=== PATIENT | male | born 1985 | race Caucasian/White ===

== ENCOUNTER 2018-01-25 14:32 | Emergency (ER) ==
[2018-01-25 14:48] VITALS: BP 130/82; TEMP 96.6; BMI 21.4
[2018-01-25] MEDS ORDERED: LIDOCAINE HCL 1% SDV SUBCUT STA (15:44)
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
--- NOTE | 2018-01-25 17:22 | CT ---
EXAM: CT sinuses/facial bones without contrast HISTORY: Trauma COMPARISON: None TECHNIQUE: Helical axial CT of the facial bones and sinuses were obtained without contrast with artur nal and sagittal reconstructions. FINDINGS: There is no acute osseous abnormality. Specifically the orbits are intact with no evidenc e for inferior or medial blowout fracture. The zygomatic arches, pterygoid plates and kelley of the m axillary sinuses are intact. There is no nasal or mandibular fracture or dislocation. There are no fluid levels in the paranasal sinuses. The visualized portions of the temporal bones, upper cervica l spine and intracranial contents are unremarkable. There are no acute soft tissue abnormalities. No dental fractures are identified. There is noted to be a cystic smoothly expansile lesion within the r ight maxilla separate from the maxillary antrum measuring 2.2 x 2.6 cm in the coronal plane. Postsurg ical changes are noted involving the mandible on the left. The mandibular condyle on the left is dre ewhat hypoplastic appearing which could be congenital or on the basis of old trauma. IMPRESSION: 1. No acute osseous abnormality is identified. 2. Expansile lesion in the maxilla which is separate from the maxillary antrum. This probably repre sents an incidental dentigerous cyst. 3. Postsurgical changes in the mandible with probable post traumatic changes in the left mandibular condyle.
[2018-01-25] MEDS ORDERED: BOOSTRIX IM ONE (18:22)
== END 2018-01-25 18:58 | disposition home or self-care (01) ==
LOC: ED 14:32
DX: S01.112A Laceration without foreign body of left eyelid and periocular area, initial encounter (principal); J34.1 Cyst and mucocele of nose and nasal sinus; W50.0XXA Accidental hit or strike by another person, initial encounter; F17.210 Nicotine dependence, cigarettes, uncomplicated
CPT/HCPCS: 90471; 90715; 99283

== ENCOUNTER 2018-08-07 11:18 | Emergency (ER) ==
[2018-08-07 11:33] VITALS: BP 128/76; TEMP 98.5; BMI 22.4
[2018-08-07] MEDS ORDERED: PRED FORTE 1% OPTH SOL OP STA (11:50)
[2018-08-07] MEDS ORDERED: TOBREX 0.3% OP STA (11:50)
[2018-08-07] MEDS ORDERED: DECADRON 4 MG/ML SDV IM STA (11:51)
[2018-08-07] MEDS ORDERED: PREDNISONE PO STA (11:51)
[2018-08-07] MEDS ORDERED: NORCO 10-325 PO STA (11:52)
--- NOTE | 2018-08-07 11:56 | ED.PDOC ---
General ED Provider: Dr. YISEL EDWARDS Chief Complaint: Eye Problem Stated Complaint: LEFT EYE IRRITATED PINK Time Seen by Physician: 11:30 (SEEN WITH MENA AT ALL TIMES ) Information Source: Patient Exam Limitations: No limitations Nursing and Triage Documentation Reviewed and Agree: Yes Does patient meet sepsis criteria?: No If yes, has appropriate treatment been initiated?: No System Inflammatory Response Syndrome: Not Applicable Sepsis Protocol: For patient's 13 years and over: Temp is 96.8 and below OR 101 and greater Pulse >90 BPM Resp >20/minute Acutely Altered Mental Status Are patient's symptoms suggestive of a new infection, such as: -Pneumonia -Skin, Soft Tissue -Endocarditis -UTI -Bone, Joint Infection -Implantable Device -Acute Abdominal Infection -Wound Infection -Meningitis -Blood Stream Catheter Infection -Unknown EENT Complaint Exam - Eye Complaint/Exam Onset/Duration: this morning Symptoms Are: Still present Timing: Constant Initial Severity: Moderate Current Severity: Moderate Location: Left Character: Reports: Dull, Foreign body sensation Aggravating: Reports: Light, Blinking. Denies: Eye drops, Contact lens Alleviating: Reports: Darkness Associated Signs and Symptoms: Reports: Clear drainage. Denies: Photophobia, Purulent drainage, Vision impairment, Fever, Swelling Eye Surgical History: Reports: None Penetrating Injury Risk Factors: None Globe Rupture Risk Factors: None Acute Glaucoma Risk Factors: None Optic Artery Occlusion Risk Factors: None Visual Acuity Right Eye: 20/15 Visual Acuity Left Eye: 20/15 Visual Field: Normal Extraocular Movement: Normal Orbit Findings: Normal Globe Findings: Intact Lid Findings: Normal Conjunctival Findings: Red (left) Corneal Findings: Clear Fundi: Normal Slit Lamp Used: No Differential Diagnoses: Conjunctivitis, Corneal Abrasion Review of Systems - Review Of Systems Constitutional: Reports: No symptoms Eyes: Reports: Drainage Ears, Nose, Mouth, Throat: Reports: No symptoms Respiratory: Reports: No symptoms Cardiac: Reports: No symptoms GI: Reports: No symptoms : Reports: No symptoms Musculoskeletal: Reports: No symptoms Skin: Reports: No symptoms Neurological: Reports: No symptoms Endocrine: Reports: No symptoms Hematologic/Lymphatic: Reports: No symptoms All Other Systems: Reviewed and Negative Past Medical History - Past Medical History Endocrine: Reports: None Cardiovascular: Reports: None Respiratory: Reports: None Hematological: Reports: None Gastrointestinal: Reports: None Genitourinary: Reports: None Neuro/Psych: Reports: None Musculoskeletal: Reports: None Cancer: Reports: None - Surgical History General Surgical History: Reports: None - Family History Family History: Reports: None - Social History Smoking Status: Current every day smoker, Light tobacco smoker Hx Substance Use: No (marijuana) Alcohol Screening: Occasionally - Immunizations Tetanus Shot up to Date: No Physical Exam - Physical Exam Appearance: Well-appearing, No pain distress, Well-nourished Eyes: Conjunctiva inflammed (, lid eversion no F/B NOTED ) ENT: Ears normal, Nose normal, Oropharynx normal Respiratory: Airway patent, Breath sounds clear, Breath sounds equal, Respirations nonlabored Cardiovascular: RRR, Pulses normal, No rub, No murmur GI/: Soft, Nontender, No masses, Bowel sounds normal, No Organomegaly Musculoskeletal: Normal strength, ROM intact, No edema, No calf tenderness Skin: Warm, Dry, Normal color Neurological: Sensation intact, Motor intact, Reflexes intact, Cranial nerves intact, Alert, Oriented Psychiatric: Affect appropriate, Mood appropriate Critical Care Note - Critical Care Note Total Time (mins): 0 Course - Course Orders, Labs, Meds: Orders Category Date Time Status Dexamethasone 4 mg/ml Inj [Decadron 4 mg/ml Sdv] MEDS 08/07/18 11:51 Stat 8 mg IM ONCE STA Hydrocodone Bit/Acetaminophen [[place] 10-325] MEDS 08/07/18 11:52 Stat 1 tab PO ONCE STA Prednisolone Opth Susp [Pred Forte 1% Opth Caren] MEDS 08/07/18 11:50 Stat 2 drop OP ONCE STA Prednisone MEDS 08/07/18 11:51 Stat 40 mg PO ONCE STA Tobramycin Sulfate Opth 0.3% [Tobrex 0.3%] MEDS 08/07/18 11:50 Stat 2 drop OP ONCE STA Medications Discontinued Medications Generic Name Dose Route Start Last Admin Trade Name Freq PRN Reason Stop Dose Admin Hydrocodone Bitart/Acetaminophen 1 tab 08/07/18 11:52 [place] 10-325 PO 08/07/18 11:53 ONCE STA Dexamethasone Sodium Phosphate 8 mg 08/07/18 11:51 Decadron 4 Mg/Ml Sdv IM 08/07/18 11:52 ONCE STA Prednisolone Acetate 2 drop 08/07/18 11:50 Pred Forte 1% Opth Caren OP 08/07/18 11:51 ONCE STA Prednisone 40 mg 08/07/18 11:51 Prednisone PO 08/07/18 11:52 ONCE STA Tobramycin Sulfate 2 drop 08/07/18 11:50 Tobrex 0.3% OP 08/07/18 11:51 ONCE STA Vital Signs: Temp Pulse Resp BP Pulse Ox 08/07/18 11:28 98.5 F 87 18 128/76 99 Departure - Departure Time of Disposition: 12:02 Disposition: HOME SELF-CARE Discharge Problem: Conjunctivitis Qualifiers: Conjunctivitis type: acute Acute conjunctivitis type: unspecified Laterality: left Qualified Code(s): H10.32 - Unspecified acute conjunctivitis, left eye Instructions: Conjunctivitis (ED) Condition: Good Pt referred to PMD for follow-up: Yes IPMP verified?: No Additional Instructions: Please call your Family Physician as soon as possible to schedule a follow-up appointment. Allergies/Adverse Reactions: Allergies No Known Allergies Allergy (Unverified 11/14/14 08:06) Home Medications: Ambulatory Orders 1 [No Reported Medications] 08/07/18 Disposition Discussed With: Patient
[2018-08-07] MEDS ORDERED: TETRACAINE 0.5% OPTH SOL OP STA (11:57)
== END 2018-08-07 12:49 | disposition home or self-care (01) ==
LOC: ED 11:18
DX: H57.12 Ocular pain, left eye (principal); H10.32 Unspecified acute conjunctivitis, left eye
CPT/HCPCS: 96372; 99282

== ENCOUNTER 2018-08-26 16:08 | Emergency (ER) ==
[2018-08-26 16:08] VITALS: BMI 22.4
[2018-08-26 16:10] VITALS: BP 130/88; TEMP 98.4
[2018-08-26] MEDS ORDERED: LIDOCAINE HCL 1% SDV SUBCUT STA (17:11)
[2018-08-26] MEDS ORDERED: TENIVAC IM ONE (17:11)
--- NOTE | 2018-08-26 17:35 | ED.PDOC ---
General ED Provider: Dr. YISEL EDWARDS Chief Complaint: Hand Laceration Stated Complaint: hand laceration right ring finger Time Seen by Physician: 16:16 (see photos, nurse present) Mode of Arrival: Walk-In Information Source: Patient Exam Limitations: No limitations Primary Care Provider: SOFIE BRYANT Nursing and Triage Documentation Reviewed and Agree: Yes Does patient meet sepsis criteria?: No System Inflammatory Response Syndrome: Not Applicable Sepsis Protocol: For patient's 13 years and over: Temp is 96.8 and below OR 101 and greater Pulse >90 BPM Resp >20/minute Acutely Altered Mental Status Are patient's symptoms suggestive of a new infection, such as: -Pneumonia -Skin, Soft Tissue -Endocarditis -UTI -Bone, Joint Infection -Implantable Device -Acute Abdominal Infection -Wound Infection -Meningitis -Blood Stream Catheter Infection -Unknown Musculoskeletal Complaint Exam - Upper Extremity Complaint/Exam Location of Pain: Reports: Right (hand laceration) Mechanism of Injury: Reports: Trauma Onset/Duration: 1 hr ago Symptoms Are: Still present Timing: Constant Episodes Lasting: Minutes Initial Severity: Mild Current Severity: Mild Location: Reports: Discrete Character: Reports: Aching Aggravating: Reports: None Alleviating: Reports: None DVT Risk Factors: Reports: Recent trauma (laceration) Related Surgical History: Reports: None Upper Extremity Findings: Absent: Swelling, Ecchymosis, Abnormal contour ( laceration see photos) Differential Diagnoses: Laceration Review of Systems - Review Of Systems Constitutional: Reports: No symptoms Eyes: Reports: No symptoms Ears, Nose, Mouth, Throat: Reports: No symptoms Respiratory: Reports: No symptoms Cardiac: Reports: No symptoms GI: Reports: No symptoms : Reports: No symptoms Musculoskeletal: Reports: No symptoms Skin: Reports: Other (laceration) Neurological: Reports: No symptoms Endocrine: Reports: No symptoms Hematologic/Lymphatic: Reports: No symptoms All Other Systems: Reviewed and Negative Past Medical History - Past Medical History Endocrine: Reports: None Cardiovascular: Reports: None Respiratory: Reports: None Hematological: Reports: None Gastrointestinal: Reports: None Genitourinary: Reports: None Neuro/Psych: Reports: None Musculoskeletal: Reports: None Cancer: Reports: None - Surgical History General Surgical History: Reports: None - Family History Family History: Reports: None - Social History Smoking Status: Current every day smoker, Light tobacco smoker Hx Substance Use: No (marijuana) Alcohol Screening: Occasionally - Immunizations Tetanus Shot up to Date: No Physical Exam - Physical Exam Appearance: Well-appearing, No pain distress, Well-nourished Eyes: ROSIE, EOMI, Conjunctiva clear ENT: Ears normal, Nose normal, Oropharynx normal Respiratory: Airway patent, Breath sounds clear, Breath sounds equal, Respirations nonlabored Cardiovascular: RRR, Pulses normal, No rub, No murmur GI/: Soft, Nontender, No masses, Bowel sounds normal, No Organomegaly Musculoskeletal: Normal strength, ROM intact, No edema, No calf tenderness Skin: Warm, Dry (laceration right ring finger 1 cm see photos no F/B ) Neurological: Sensation intact, Motor intact, Reflexes intact, Cranial nerves intact, Alert, Oriented Psychiatric: Affect appropriate, Mood appropriate Procedures - Laceration/Wound Repair No standard instances Wound Description: Linear (LACEATION RIGHT RING FINGER NOTED IN PHOTOS) Wound Length (cm): 1CM Wound Width: 2MM Wound Depth: 1MM Wound Explored: Clean Wound Irrigated: Yes Wound Prep: Hibiclens Anesthesia: Lidocaine (PLAIN 2 ML PLAIN) Undermining: Minimal Wound Margins: Revised, [place] border aligned Wound Repaired With: Sutures Suture Size and Type: 3 PROLENE Number of Sutures: 5 Number of Ilda: 0 Layer Closure?: No Sterile Dressing Applied?: Yes Splint Applied?: Yes Critical Care Note - Critical Care Note Total Time (mins): 0 Course - Course Orders, Labs, Meds: Orders Category Date Time Status Lidocaine HCl/Pf [Lidocaine HCl 1% Sdv] MEDS 08/26/18 17:11 Discontinued 5 ml SUBCUT ONCE STA Tetanus and Diphtheria Tox/Pf [Tenivac] MEDS 08/26/18 17:11 Discontinued 0.5 ml IM .ONCE ONE Medications Discontinued Medications Generic Name Dose Route Start Last Admin Trade Name Freq PRN Reason Stop Dose Admin Lidocaine HCl 5 ml 08/26/18 17:11 Lidocaine Hcl 1% Sdv SUBCUT 08/26/18 17:12 ONCE STA Tetanus/Diphtheria Toxoids Adsorbed 0.5 ml 08/26/18 17:11 Tenivac IM 08/26/18 17:12 .ONCE ONE Vital Signs: Temp Pulse Resp BP Pulse Ox 08/26/18 16:08 98.4 F 98 H 16 130/88 97 Departure - Departure Time of Disposition: 17:37 Disposition: HOME SELF-CARE Discharge Problem: Laceration of hand Instructions: Laceration (ED) Condition: Good Pt referred to PMD for follow-up: Yes IPMP verified?: No Additional Instructions: Please call your Family Physician as soon as possible to schedule a follow-up appointment. Prescriptions: Hydrocodone/Acetaminophen [[place] 10-325 Tablet] 1 each PO Q8HR #7 tablet Allergies/Adverse Reactions: Allergies No Known Allergies Allergy (Unverified 08/26/18 16:10) Home Medications: Ambulatory Orders Hydrocodone/Acetaminophen [[place] 10-325 Tablet] 1 each PO Q8HR #7 tablet Disposition Discussed With: Patient
== END 2018-08-26 17:40 | disposition home or self-care (01) ==
LOC: ED 16:08
DX: S61.214A Laceration without foreign body of right ring finger without damage to nail, initial encounter (principal); F17.210 Nicotine dependence, cigarettes, uncomplicated
CPT/HCPCS: 90471; 90714; 99283

== ENCOUNTER 2018-11-26 19:21 | Emergency (ER) | payer MEDICAID, OTHER ==
[2018-11-26 19:22] VITALS: BMI 22.4
[2018-11-26 19:28] VITALS: BP 122/80; TEMP 98.1
--- NOTE | 2018-11-26 19:37 | ED.PDOC ---
General ED Provider: Dr. LUPIS SHAVER Chief Complaint: Tooth Problem Stated Complaint: Lower left molar tooth ache with severe pain for 2 days, has tried taking Motrin but did not help. Tried taking Tylenol 2 hours ago but still has severe pain. Has not had time to look for a dentist. Pain radiate to the Temporal area. Time Seen by Physician: 19:31 Mode of Arrival: Walk-In Information Source: Patient Exam Limitations: No limitations Primary Care Provider: SOFIE BRYANT Seen Within Last 72 Hours for Same Complaint By: ED Nursing and Triage Documentation Reviewed and Agree: Yes Does patient meet sepsis criteria?: No System Inflammatory Response Syndrome: Not Applicable Sepsis Protocol: For patient's 13 years and over: Temp is 96.8 and below OR 101 and greater Pulse >90 BPM Resp >20/minute Acutely Altered Mental Status Are patient's symptoms suggestive of a new infection, such as: -Pneumonia -Skin, Soft Tissue -Endocarditis -UTI -Bone, Joint Infection -Implantable Device -Acute Abdominal Infection -Wound Infection -Meningitis -Blood Stream Catheter Infection -Unknown EENT Complaint Exam - Dental/Oral Complaint/Exam Mechanism of Injury: No known trauma Onset/Duration: 2 days Symptoms Are: Still present Timing: Constant Initial Severity: Moderate Current Severity: Severe Location: Left lower molar area. Character: Reports: Dull, Aching, Throbbing Aggravating: Reports: Heat, Cold, Chewing, Exertion Alleviating: Reports: None (despite OTC medications. ) Associated Signs and Symptoms: Denies: Swelling, Discharge, Fever, Foul odor, Foul taste in mouth Related History: Reports: Third molars present. Denies: Similar episode, Previous tooth problem Cardiac Risk Factors: Reports: None Dental/Oral Surgical History: Reports: None Tooth Findings: Present: Gross decay, Dental fracture Cervical Lymphadenopathy Present: No Facial Swelling Present: No Bleeding Present: No Oropharynx Findings: Absent: Clots, Active bleeding Septal Hematoma: No Foreign Body Present: No Dysphagia Present: No Drooling Present: No Asymmetrical Tonsillar Swelling Present: No Uvula Midline: Yes Ceci-tonsillar Fluctuence: No Trismus Present: No Palatal Petechiae Present: No Scarlatinaform Rash Present: No Teeth Picture: 1 - dental fractre anteroir and medially. Differential Diagnoses: Dental Caries, Fractured Tooth Review of Systems - Review Of Systems Constitutional: Reports: No symptoms Eyes: Reports: No symptoms Ears, Nose, Mouth, Throat: Reports: Mouth pain Respiratory: Reports: No symptoms Cardiac: Reports: No symptoms GI: Reports: No symptoms : Reports: No symptoms Musculoskeletal: Reports: No symptoms Skin: Reports: No symptoms Neurological: Reports: No symptoms Endocrine: Reports: No symptoms Hematologic/Lymphatic: Reports: No symptoms All Other Systems: Reviewed and Negative Past Medical History - Past Medical History Endocrine: Reports: None Cardiovascular: Reports: None Respiratory: Reports: None Hematological: Reports: None Gastrointestinal: Reports: None Genitourinary: Reports: None Neuro/Psych: Reports: None Musculoskeletal: Reports: None Cancer: Reports: None - Surgical History General Surgical History: Reports: None - Family History Family History: Reports: None - Social History Smoking Status: Current every day smoker, Heavy tobacco smoker Hx Substance Use: No (marijuana) Alcohol Screening: Occasionally - Immunizations Tetanus Shot up to Date: Yes Physical Exam - Physical Exam Appearance: Ill-appearing Ill-appearing: Mild Pain Distress: Severe Eyes: ROSIE, EOMI, Conjunctiva clear ENT: Ears normal, Nose normal, Oropharynx normal Neck: Supple Respiratory: Airway patent, Breath sounds clear, Breath sounds equal, Respirations nonlabored Cardiovascular: RRR, Pulses normal, No rub, No murmur Neurological: Alert, Oriented Psychiatric: Anxious Critical Care Note - Critical Care Note Total Time (mins): 0 Course - Course Vital Signs: Temp Pulse Resp BP Pulse Ox 11/26/18 19:22 98.1 F 100 H 18 122/80 97 Departure - Departure Time of Disposition: 19:44 Disposition: HOME SELF-CARE Discharge Problem: Dental abscess, Toothache Instructions: Dental Abscess (ED), Toothache (ED) Condition: Fair Pt referred to PMD for follow-up: Yes IPMP verified?: Yes (no recent narcotics prescribed and picked up ) Additional Instructions: Take medications as prescribed Follow up with PCP in 3 days Prescriptions: Hydrocodone Bit/Acetaminophen [[place] 5-325] 1 each PO Q6HR PRN #15 tablet PRN Reason: severe pain Amoxicillin [Amoxil] 500 mg PO TID #30 capsule Ibuprofen [Motrin] 600 mg PO Q6H PRN #30 tablet PRN Reason: Analgesia Allergies/Adverse Reactions: Allergies No Known Allergies Allergy (Verified 11/26/18 19:28) Home Medications: Ambulatory Orders Amoxicillin [Amoxil] 500 mg PO TID #30 capsule 11/26/18 Hydrocodone Bit/Acetaminophen [[place] 5-325] 1 each PO Q6HR PRN #15 tablet Ibuprofen [Motrin] 600 mg PO Q6H PRN #30 tablet 11/26/18 Disposition Discussed With: Patient, Family
== END 2018-11-26 19:52 | disposition home or self-care (01) ==
LOC: ED 19:21
DX: K08.89 Other specified disorders of teeth and supporting structures (principal); K04.7 Periapical abscess without sinus; K02.7 Dental root caries; S02.5XXA Fracture of tooth (traumatic), initial encounter for closed fracture; F17.210 Nicotine dependence, cigarettes, uncomplicated
CPT/HCPCS: 99282

== ENCOUNTER 2019-01-31 18:34 | Emergency (ER) ==
[2019-01-31 18:40] VITALS: BP 118/75; TEMP 98.2; BMI 21.4
[2019-01-31] MEDS ORDERED: LIDOCAINE HCL 1% SDV ONE (18:50)
--- NOTE | 2019-01-31 19:06 | ED.PDOC ---
General ED Provider: Dr. ARIANE PADRON Chief Complaint: Finger Pain/Injury Stated Complaint: cut right thumb Time Seen by Physician: 18:40 Mode of Arrival: Walk-In Information Source: Patient Exam Limitations: No limitations Nursing and Triage Documentation Reviewed and Agree: Yes Does patient meet sepsis criteria?: No System Inflammatory Response Syndrome: Not Applicable Sepsis Protocol: For patient's 13 years and over: Temp is 96.8 and below OR 101 and greater Pulse >90 BPM Resp >20/minute Acutely Altered Mental Status Are patient's symptoms suggestive of a new infection, such as: -Pneumonia -Skin, Soft Tissue -Endocarditis -UTI -Bone, Joint Infection -Implantable Device -Acute Abdominal Infection -Wound Infection -Meningitis -Blood Stream Catheter Infection -Unknown Musculoskeletal Complaint Exam - Hand/Wrist Complaint/Exam Onset/Duration: cut today Symptoms Are: Still present Onset of Pain: Reports: Immediate Initial Severity: Mild Current Severity: Mild Location: Reports: Discrete Character: Reports: Aching Alleviating: Reports: None Aggravating: Reports: None Associated Signs and Symptoms: Reports: Redness Review of Systems - Review Of Systems Constitutional: Reports: No symptoms Eyes: Reports: No symptoms Ears, Nose, Mouth, Throat: Reports: No symptoms Respiratory: Reports: No symptoms Cardiac: Reports: No symptoms GI: Reports: No symptoms : Reports: No symptoms Musculoskeletal: Reports: Other Skin: Reports: Lesions Neurological: Reports: No symptoms Endocrine: Reports: No symptoms, Unexplained weight gain All Other Systems: Reviewed and Negative Past Medical History - Past Medical History Endocrine: Reports: None Cardiovascular: Reports: None Respiratory: Reports: None Hematological: Reports: None Gastrointestinal: Reports: None Genitourinary: Reports: None Neuro/Psych: Reports: None Musculoskeletal: Reports: None Cancer: Reports: None - Surgical History General Surgical History: Reports: None - Family History Family History: Reports: None - Social History Smoking Status: Current every day smoker, Heavy tobacco smoker Hx Substance Use: No (marijuana) Alcohol Screening: Occasionally - Immunizations Tetanus Shot up to Date: Yes (up to date) Physical Exam - Physical Exam Appearance: Well-appearing Ill-appearing: None Pain Distress: Mild Eyes: ROSIE ENT: Ears normal Neck: Supple Respiratory: Airway patent GI/: Soft Musculoskeletal: Normal strength Skin: Warm Neurological: Sensation intact Psychiatric: Affect appropriate Procedures - Laceration/Wound Repair No standard instances Wound Description: Joint proximity Wound Length (cm): 3cm Wound Width: 5mm Wound Depth: 4mm Wound Explored: Clean Wound Irrigated: Yes Wound Prep: Saline Anesthesia: Lidocaine Wound Debrided: Minimal Undermining: Minimal Wound Margins: Revised Wound Repaired With: Sutures Suture Size and Type: 2x 3-0 Prolene Number of Sutures: 2 Layer Closure?: No Sterile Dressing Applied?: Yes Sling Applied?: No Critical Care Note - Critical Care Note Total Time (mins): 0 Course - Course Orders, Labs, Meds: Orders Category Date Time Status Lidocaine HCl/Pf [Lidocaine HCl 1% Sdv] MEDS 01/31/19 18:50 Discontinued 5 ml .ROUTE .STK-MED ONE Vital Signs: Temp Pulse Resp BP Pulse Ox 01/31/19 18:34 98.2 F 93 H 20 118/75 97 Departure - Departure Time of Disposition: 19:11 Disposition: HOME SELF-CARE Discharge Problem: Cellulitis of hand Instructions: Finger Laceration (ED) Condition: Good Pt referred to PMD for follow-up: Yes (follow with hand surgeon at am for other digit/old infection/.) IPMP verified?: No Additional Instructions: Augmentib 875mg bid x 7 days.OTC Tylenol Allergies/Adverse Reactions: Allergies No Known Allergies Allergy (Verified 01/31/19 18:41) Home Medications: Ambulatory Orders 1 [No Reported Medications] 01/31/19 Disposition Discussed With: Patient, Family
== END 2019-01-31 19:26 | disposition home or self-care (01) ==
LOC: ED 18:34
DX: S61.011A Laceration without foreign body of right thumb without damage to nail, initial encounter (principal); L03.119 Cellulitis of unspecified part of limb; W45.8XXA Other foreign body or object entering through skin, initial encounter; F17.210 Nicotine dependence, cigarettes, uncomplicated
CPT/HCPCS: 99283

== ENCOUNTER 2019-02-01 15:59 | Outpatient (CLI) ==
[2019-01-31 18:40] VITALS: BMI 21.4
--- NOTE | 2019-02-02 08:56 | DI ---
EXAM: Right finger fourth digit three-view HISTORY: Pain in right fingers COMPARISON: None FINDINGS: Avulsion fracture at the posterior base of the distal phalanx of the fourth digit. No dis location. Suggestion of a soft tissue laceration dorsal aspect distal fourth digit that to be correl ated clinically. IMPERSSION: 1. Avulsion fracture at the posterior base of the distal phalanx of the fourth digit. No dislocat ion. 2. Suggestion of a soft tissue laceration dorsal aspect distal fourth digit that to be correlated cl inically.
== END 2019-02-01 16:00 | disposition home or self-care (01) ==
LOC: RAD 15:59
PROVIDERS: ATTEND Nurse Practitioner Family
DX: M79.644 Pain in right finger(s) (principal)

== ENCOUNTER 2019-02-10 19:13 | Emergency (ER) ==
[2019-02-10 19:18] VITALS: BP 132/84; TEMP 97.1; BMI 21.2
[2019-02-10] MEDS ORDERED: ROCEPHIN IM STA (19:50)
[2019-02-10] MEDS ORDERED: LIDOCAINE HCL 1% SDV IM STA (19:50)
--- NOTE | 2019-02-10 19:54 | ED.PDOC ---
General ED Provider: Dr. LUPIS SHAVER Chief Complaint: Wound Check Stated Complaint: Patient is a 33 year old male who comes to the er for a wound check on ther right hand. states he was working on something and struck the thumb on the right hand was seen here and had 2 sutures placed. Had a prescription for amoxil but did not fill it. Time Seen by Physician: 19:30 Mode of Arrival: Walk-In Information Source: Patient Nursing and Triage Documentation Reviewed and Agree: Yes Does patient meet sepsis criteria?: No System Inflammatory Response Syndrome: Not Applicable Sepsis Protocol: For patient's 13 years and over: Temp is 96.8 and below OR 101 and greater Pulse >90 BPM Resp >20/minute Acutely Altered Mental Status Are patient's symptoms suggestive of a new infection, such as: -Pneumonia -Skin, Soft Tissue -Endocarditis -UTI -Bone, Joint Infection -Implantable Device -Acute Abdominal Infection -Wound Infection -Meningitis -Blood Stream Catheter Infection -Unknown Review of Systems - Review Of Systems Constitutional: Reports: No symptoms Eyes: Reports: No symptoms Ears, Nose, Mouth, Throat: Reports: No symptoms Respiratory: Reports: No symptoms Cardiac: Reports: No symptoms GI: Reports: No symptoms : Reports: No symptoms Musculoskeletal: Reports: Joint pain, Joint swelling (base of right thumb ) Skin: Reports: Other (wound right thumb with one surtre deheased ) Neurological: Reports: No symptoms Endocrine: Reports: No symptoms Hematologic/Lymphatic: Reports: No symptoms All Other Systems: Reviewed and Negative Past Medical History - Past Medical History Endocrine: Reports: None Cardiovascular: Reports: None Respiratory: Reports: None Hematological: Reports: None Gastrointestinal: Reports: None Genitourinary: Reports: None Neuro/Psych: Reports: None Musculoskeletal: Reports: None Cancer: Reports: None - Surgical History General Surgical History: Reports: Orthopedic (Jaw broke and wired shut. Left arm broken (hardware placed). ), Other ( Recent dental surgery. ) - Family History Family History: Reports: None - Social History Smoking Status: Current every day smoker Hx Substance Use: No Alcohol Screening: None - Immunizations Tetanus Shot up to Date: Yes Physical Exam - Physical Exam Appearance: Ill-appearing Ill-appearing: Mild Pain Distress: Moderate Neck: Supple Respiratory: Airway patent Cardiovascular: RRR, Pulses normal, No rub, No murmur Skin: Warm, Dry Neurological: Alert, Oriented Psychiatric: Anxious Interpretation - Radiology Interpretation Radiology Interpretation By: Radiologist Radiology Results: Positive (Avulsion fx of the michael of the distal phalanx) Exam Interpreted: Other (done on 3rd ) Radiology Interpretation By: Radiologist Exam Interpreted: Other (Right thumb) Critical Care Note - Critical Care Note Total Time (mins): 0 Course - Course Orders, Labs, Meds: Orders Category Date Time Status ED WOUND CARE .ONCE EMERGENCY 02/10/19 19:50 Active Ceftriaxone Sodium [Rocephin] MEDS 02/10/19 19:50 Discontinued 1 gm IM ONCE STA Lidocaine HCl/Pf [Lidocaine HCl 1% Sdv] MEDS 02/10/19 19:50 Discontinued 2.1 ml IM ONCE STA FINGER(S) RIGHT MIN 2V Stat RADS 02/10/19 20:03 Completed Medications Discontinued Medications Generic Name Dose Route Start Last Admin Trade Name Freq PRN Reason Stop Dose Admin Ceftriaxone Sodium 1 gm 02/10/19 19:50 02/10/19 20:04 Rocephin IM 02/10/19 19:51 1 gm ONCE STA Administration Lidocaine HCl 2.1 ml 02/10/19 19:50 02/10/19 20:04 Lidocaine Hcl 1% Sdv IM 02/10/19 19:51 2.1 ml ONCE STA Administration Vital Signs: Temp Pulse Resp BP Pulse Ox 02/10/19 19:14 97.1 F L 98 H 16 132/84 96 Departure - Departure Time of Disposition: 21:22 Disposition: HOME SELF-CARE Discharge Problem: Wound Dehiscence of closure of skin Qualifiers: Encounter type: initial encounter Qualified Code(s): T81.31XA - Disruption of external operation (surgical) wound, not elsewhere classified, initial encounter Instructions: Finger Fracture (ED), Wound Infection (ED) Condition: Stable Pt referred to PMD for follow-up: Yes IPMP verified?: No Additional Instructions: MUST TAKE ANTIBIOTICS PRESCRIBED OR YOU WILL LOSE YOUR FINGER TO INFECTION FOLLOW UP WITH YOUR PCP IN 2 DAYS RETURN IF WORSE. TAKE MOTRIN NEEDED FOR PAIN Prescriptions: Cephalexin [Keflex] 500 mg PO Q8HR #30 capsule Ibuprofen [Motrin] 600 mg PO Q6H PRN #30 tablet PRN Reason: Analgesia Allergies/Adverse Reactions: Allergies No Known Allergies Allergy (Verified 01/31/19 18:41) Home Medications: Ambulatory Orders Cephalexin [Keflex] 500 mg PO Q8HR #30 capsule 02/10/19 Ibuprofen [Motrin] 600 mg PO Q6H PRN #30 tablet 02/10/19
--- NOTE | 2019-02-10 22:12 | DI ---
EXAM: Right first finger/thumb three view. HISTORY: Patient history of blunt trauma to the base of the right thumb with swelling. Comparison: None available. Findings: No definitive right first finger/thumb acute fracture or dislocation is identified. The right first finger/thumb joint spaces appear preserved. Impression: No definitive right first finger/thumb acute fractures or dislocations are identified.
== END 2019-02-10 21:45 | disposition home or self-care (01) ==
LOC: ED 19:13
DX: T81.31XA Disruption of external operation (surgical) wound, not elsewhere classified, initial encounter (principal); F17.210 Nicotine dependence, cigarettes, uncomplicated
CPT/HCPCS: 96372; 99283